=== PATIENT | female | born 1955 | race Caucasian/White ===

== ENCOUNTER 2017-06-27 11:46 | Emergency (ER) | payer OTHER ==
[~2017-06-27] VITALS: Ht 167.6 cm; Wt 54.4 kg
--- NOTE | ~2017-06-27 | CR107 ---
[facility]. [facility] A Service of [facility] & [facility] / [facility] RADIOLOGY TEXT RESULTS PATIENT: GENIE SAUNDERS I LOCATION: SED : 57 UNIT #: [id number] AGE: [address]: Luna Mishra APRN SEX: F ORDER DR: [id number] [address] [address] [id number] E MR#: [id number] Acc #: [id number] NAME: GENIE SAUNDERS I. : 1955 SEX: F STUDY DATE/TIME: 06/27/2017 13:02 UNIT: SED ROOM: STUDY DESCRIPTION: CR Femur 2 Views Rt Attending Physician: Luna Mishra A.P.R.N. Ordering Physician: Luna Faustin A.P.R.N. MEDICAL IMAGING REPORT This report is preliminary unless electronic signature is present. EXAM Right femur series dated 06/27/2017. COMPARISON Right knee series dated 06/27/2017. HISTORY Patient fell off chair today with right thigh and knee pain. FINDINGS 2 views of the right femur were obtained. There is diffuse bony osteopenia and mild to moderate knee joint effusion. No obvious acute displaced fracture or dislocation is noted in the right femur. Dictated by... Lexus Steinberg M.D. THIS IS AN ELECTRONICALLY VERIFIED REPORT Lexus Steinberg M.D. at 06/30/2017 9:14 AM CPR/gz TD: 06/28/2017 07:50 JOB #: [id number] MEDICAL IMAGING REPORT Page 1 of 1
--- NOTE | ~2017-06-27 | CR173 ---
[facility] A Service of [facility] & [facility] RADIOLOGY TEXT RESULTS PATIENT: GENIE SAUNDERS I LOCATION: SED : 57 UNIT #: [id number] AGE: [address]: Luna Mishra APRN SEX: F ORDER DR: [id number] [address] [address] [id number] E MR#: [id number] Acc #: [id number] NAME: GENIE SAUNDERS I. : 1955 SEX: F STUDY DATE/TIME: 06/27/2017 13:02 UNIT: SED ROOM: STUDY DESCRIPTION: CR Knee 3 Views Rt Attending Physician: Luna Mishra A.P.R.N. Ordering Physician: Luna Faustin A.P.R.N. MEDICAL IMAGING REPORT This report is preliminary unless electronic signature is present. EXAM Right knee series dated 06/27/2017. COMPARISON Right femur series dated 06/27/2017. HISTORY Patient fell off chair today with pain in the thigh and knee on the right side. FINDINGS 3 views of the right knee were obtained. There is diffuse bony osteopenia. Moderate joint effusion is suspected. No obvious acute displaced fracture or dislocation is seen. If there is persistent pain, CT can be considered or even followup right knee series. Dictated by... Lexus Steinberg M.D. THIS IS AN ELECTRONICALLY VERIFIED REPORT Lexus Steinberg M.D. at 06/30/2017 9:14 AM CPR/gz TD: 06/28/2017 07:40 JOB #: [id number] MEDICAL IMAGING REPORT Page 1 of 1
[2017-06-27] MEDS ORDERED: ALBUTEROL17 GM INH (12:01)
[2017-06-27] MEDS ORDERED: BUDESONIDE0.5 MG/2 M INH (12:01)
[2017-06-27] MEDS ORDERED: [UNRECOGNIZED DRUG - OTHER] (12:01)
[2017-06-27] MEDS ORDERED: TEMAZEPAM (12:01)
[2017-06-27] MEDS ORDERED: VITAMIN D400 UNI2 (12:01)
== END 2017-06-27 14:47 | disposition home or self-care (01) ==
LOC: SED 11:46
DX: S83.91XA Sprain of unspecified site of right knee, initial encounter (principal); J44.9 Chronic obstructive pulmonary disease, unspecified; Z88.5 Allergy status to narcotic agent; W19.XXXA Unspecified fall, initial encounter; Y92.009 Unspecified place in unspecified non-institutional (private) residence as the place of occurrence of the external cause
CPT/HCPCS: 29505; 73552; 73562; 99283